=== PATIENT | female | born 1970 | race Caucasian/White ===

== ENCOUNTER 2021-04-28 11:19 | Emergency (ER) | payer MEDICAID, SELFPAY ==
[~2021-04-28] VITALS: Ht 172.7 cm; Wt 67.1 kg
[2021-04-28 11:30] VITALS: BP 130/88
--- NOTE | 2021-04-28 11:41 | NUR ---
PT TO WAIT OUTSIDE FOR DR EVALUATION
--- NOTE | 2021-04-28 12:00 | NUR ---
50 Y/O FEMALE C/O DRY COUGH, FEVER, HEADACHE, BACK PAIN, AND LUNGS HURT WHEN SHE BREATHS X4 DAYS. PT ALSO C/O CHEST PAIN WHEN SHE TAKES A DEEP BREATH. DENIES EXPOSURE TO COVID. PT STATES HER FRIEND IS SICK WITH SIMILAR COLD SYMPTOMS BUT TESTED NEGATIVE FOR COVID. PT A/O X4 WITH EVEN AND UNLABORED RESPIRATIONS. PMH:ARRYTHMIA NKDA
--- NOTE | 2021-04-28 12:13 | NUR ---
BULL MONTEIRO AND BULL DELGADO SAMPLES COLLECTED AND WALKED TO LAB
--- NOTE | 2021-04-28 13:44 | NUR ---
Lab called reports covid test invalid x2,
[2021-04-28] MEDS ORDERED: ALBU0.0912 IH (14:07)
[2021-04-28] MEDS ORDERED: ROB PO (14:07)
[2021-04-28] MEDS ORDERED: ACET-10509 PO (14:07)
[2021-04-28 14:15] VITALS: BP 115/77
--- NOTE | 2021-04-28 14:15 | NUR ---
Patient discharged with v/s stable. Written and verbal after care instructions ABOUT MEDICATION AND COVID 19 given and explained. Patient alert, oriented and verbalized understanding of instructions. Ambulatory with steady gait. All questions addressed prior to discharge. ID band removed. Patient advised to follow up with PMD. Rx of TYLENOL EXTRA STENGTH, ALBUTEROL SULFATE, AND GUAIFENESIN given. Patient educated on indication of medication including possible reaction and side effects. Opportunity to ask questions provided and answered.
--- NOTE | 2021-05-01 11:10 | NUR ---
RECEIVED CRITICAL RESULT COVID +, АНДРЕЙ BARRERA SEEN 04/28/21. DR. BARBOSA MADE AWARE. COPY TO BE SENT TO INFECTION CONTROL.
== END 2021-04-28 14:15 | disposition home or self-care (01) ==
LOC: MED 11:19
DX: U07.1 COVID-19 (principal)
CPT/HCPCS: 71045; 87426; 99283; U0003